=== PATIENT | female | born 1935 | race Caucasian/White ===

== ENCOUNTER → 2016-12-30 | Outpatient (CLI) | payer MEDICARE, BC ==
[~2016-12-30] MED LIST: ALBU8.5H6 IH; ALPR0.5T PO; ASCO500T2 PO; ASPI-630 PO; ATOR10TA PO; CALC1TAB75 PO; CEFD300C PO; FERR325C PO; GEMF600T3 PO; LEVO50TA PO; LEVO50TA5 PO; LISI-334 PO; METO50TA10 PO
--- NOTE | 2016-12-30 11:11 | RAD ---
Right shoulder, 3 views, 12/30/2016: History: Pain There is moderate bony demineralization. No fracture or dislocation is identified. There is minimal degenerative change at the AC joint and along the glenoid rim. Surgical clips are present in the right axilla. IMPRESSION: 1. Demineralization. 2. Minimal degenerative change. 3. No acute bony abnormality is detected.
--- NOTE | 2016-12-30 11:12 | RAD ---
Pelvis with left hip, 2 views, 12/30/2016: History: Hip pain The bony structures are demineralized. No fracture or dislocation is identified. The hip joint space is only mildly narrowed. There is mild marginal spurring at both hips. Mild degenerative change is present at the symphysis pubis. Moderate degenerative changes are noted in the lower lumbar spine. IMPRESSION: 1. Mild degenerative change at both hip joints. 2. No acute bony abnormality is detected.
== END | disposition home or self-care (01) ==
LOC: DXRADRC 10:51
PROVIDERS: ATTEND Physician Assistant Medical
DX: M16.12 Unilateral primary osteoarthritis, left hip (principal); M19.011 Primary osteoarthritis, right shoulder; M81.0 Age-related osteoporosis without current pathological fracture
CPT/HCPCS: 73030; 73501

== ENCOUNTER → 2020-03-13 | Outpatient (CLI) | payer MEDICARE, BC ==
[~2020-03-13] MED LIST changes: -ASCO500T2 PO; +ASCO500T4 PO; -GEMF600T3 PO; +GEMF600T8 PO; -METO50TA10 PO; +METO50TA29 PO
--- NOTE | 2020-03-13 09:54 | RAD ---
Left lower extremity venous Doppler ultrasound History: Reason: PAIN IN LEFT LOWER LEG; POPLITEAL PAIN : Comparison: None. Procedure: Color flow Doppler, Doppler spectral analysis, and 2D images are obtained with and without compression in the area of the common femoral vein, superficial femoral vein - femoral vein junction, main femoral vein (superficial femoral vein) and popliteal vein. Veins of the proximal calf are also imaged. Findings: There is normal color flow, augmentation, and compressibility of all visualized vein segments. No evidence of deep venous thrombus is present. There is a popliteal fossa cyst measuring 1.1 x 2.4 x 0.5 cm. IMPRESSION: No evidence of left lower extremity deep venous thrombosis. Electronically signed by: Allan Dalton MD (03/13/2020 9:51 AM) [id number]
== END ==
LOC: PMG 08:25
PROVIDERS: ATTEND Family Medicine
DX: M71.22 Synovial cyst of popliteal space [Baker], left knee (principal); M79.662 Pain in left lower leg; M79.609 Pain in unspecified limb
CPT/HCPCS: 93971

== ENCOUNTER → 2020-06-14 | Outpatient (CLI) | payer MEDICARE, BC ==
[~2020-06-14] MED LIST changes: +CALC-628 PO; -CALC1TAB75 PO
== END ==
LOC: LAB 09:46
PROVIDERS: ATTEND Internal Medicine Cardiovascular Disease
DX: E78.5 Hyperlipidemia, unspecified (principal)
CPT/HCPCS: 80061

== ENCOUNTER → 2020-09-07 | Outpatient (CLI) | payer MEDICARE, BC ==
--- NOTE | 2020-09-07 11:10 | CARD ---
MR#: [id number] Date of Study: 09/07/2020 Ordering Physician: MARCE ANNE, Referring Physician: MARCE ANNE, Tech: Malissa Johnson [facility] APPROVED REPORT EXAM: Two-dimensional and M-mode echocardiogram with Doppler and color Doppler. Other Information Quality : Good Rhythm : LBBB INDICATION Hypertension/HCVD 2D DIMENSIONS RVDd3.0 (2.9-3.5cm)Left Atrium(2D)3.3 (1.6-4.0cm) IVSd0.9 (0.7-1.1cm)Aortic Root(2D)2.9 (2.0-3.7cm) LVDd4.0 (3.9-5.9cm)LVOT Diameter2.0 (1.8-2.4cm) PWd0.9 (0.7-1.1cm)LVDs2.6 (2.5-4.0cm) FS (%) 35.8 %SV46.9 ml LVEF(%)60.0 (>50%) Aortic Valve AoV Peak Noe.123.2cm/sAoV VTI27.4cm AO Peak GR.6.1mmHgLVOT Peak Noe.89.3cm/s LVOT VTI 17.05cmAO Mean GR.4mmHg TY (VMAX)2.99hj6GMJ (VTI)1.96cm2 AI P 1/2 Bilw661zl Mitral Valve MV E Ydrojkcm93.3cm/sMV DECEL QVIO257zw MV A Rkzkzlqp214.5cm/sE/A Ratio0.7 Tricuspid Valve TR P. Gfaxpoip214gw/sRAP PNHWSFXB9aiHs TR Peak Gr.88boMxDBAQ74lqOa Pulmonary Vein S1 Ibwdiiiw55.7cm/sD2 Dpfisgcm88.3cm/s LEFT VENTRICLE The left ventricle is normal size. There is normal left ventricular wall thickness. The left ventricu lar systolic function is normal. The Ejection Fraction is 55-60%. Septal motion consistent with condu ction abnormality. Transmitral Doppler flow pattern is Grade I-abnormal relaxation pattern. RIGHT VENTRICLE The right ventricle is normal size. The right ventricular systolic function is normal. ATRIA The left atrium size is normal. The right atrium size is normal. The interatrial septum is intact wit h no evidence for an atrial septal defect or patent foramen ovale as noted on 2-D or Doppler imaging. AORTIC VALVE The aortic valve is mildly thickened but opens well. Doppler and Color Flow revealed mild aortic regu rgitation. There is no significant aortic valvular stenosis. MITRAL VALVE The mitral valve is calcified but opens well. There is no evidence of mitral valve prolapse. There is no mitral valve stenosis. Doppler and Color Flow revealed no mitral valve regurgitation noted. TRICUSPID VALVE The tricuspid valve is normal in structure and function. Doppler and Color Flow revealed trace tricus pid regurgitation. The PA pressure was estimated at 25 mmHg. There is no tricuspid valve stenosis. PULMONIC VALVE The pulmonic valve is not well visualized. Doppler and Color Flow revealed no pulmonic valvular regur gitation. There is no pulmonic valvular stenosis. GREAT VESSELS The aortic root is normal in size. The ascending aorta is normal in size. The IVC is normal in size a nd collapses >50% with inspiration. PERICARDIAL EFFUSION There is no evidence of significant pericardial effusion. Critical Notification Critical Value: No <Conclusion> The left ventricular systolic function is normal. The Ejection Fraction is 55-60%. Transmitral Doppler flow pattern is Grade I-abnormal relaxation pattern. Mild aortic regurgitation. Trace tricuspid regurgitation. The PA pressure was estimated at 25 mmHg. There is no evidence of significant pericardial effusion. Signed by : Estuardo Cintron, Electronically Approved : 09/07/2020 11:10:44
== END ==
LOC: ECHO 09:41
PROVIDERS: ATTEND Internal Medicine Cardiovascular Disease
DX: I08.0 Rheumatic disorders of both mitral and aortic valves (principal)
CPT/HCPCS: 93306

== ENCOUNTER → 2020-09-10 | Outpatient (CLI) | payer MEDICARE, BC ==
--- NOTE | 2020-09-10 17:28 | RAD ---
Chest PA and lateral: Reason for examination: Back\Thoracic spine pain. Comparison is made to previous chest exam dated 12/06/2014. The heart size is normal. Mediastinum is unremarkable. Lung foy show some linear density possibly reflecting atelectasis or scarring at the left lung base. No acute bony abnormalities are seen. There are surgical clips at the right axilla. Impression: Linear atelectasis or scarring at the left lung base. No other focal abnormality seen in the chest. Thoracic spine 3 views: There is a thoracic scoliosis. No acute fracture or subluxation is seen. No abnormalities of seen at the pedicles. The intervertebral discs show some narrowing at the mid thoracic spine and there greate st curvature consistent with some degenerative disc disease. IMPRESSION: Thoracic scoliosis with some degenerative disc disease at the mid thoracic spine. No acute abnormalit y evident in the thoracic spine. Electronically signed by: Radha Quiroz MD (09/10/2020 5:25 PM) CROW
== END ==
LOC: PMG 12:11
PROVIDERS: ATTEND Physician Assistant Medical
DX: M51.34 Other intervertebral disc degeneration, thoracic region (principal); M41.84 Other forms of scoliosis, thoracic region
CPT/HCPCS: 71046; 72072

== ENCOUNTER → 2020-11-28 | Outpatient (CLI) | payer MEDICARE, BC ==
[~2020-11-28] MED LIST changes: +GEMF-24 PO; -GEMF600T8 PO; -LISI-334 PO; +LISI20TA18 PO
--- NOTE | 2020-11-28 11:41 | RAD ---
INDICATION: Screening for osteopenia/osteoporosis. Postmenopausal evaluation. COMPARISON: None. TECHNIQUE: Bone densitometry was performed through the lumbar spine and proximal femur. IMPRESSION: Lumbar Spine: BMD: 1.04 T-Score: -1.2 Range: Osteopenic Proximal Femur: BMD: 0.7 T-Score: -2.1 Range: Osteopenic World Health Organization Criteria for Bone Density: T-Score: > -1.0: Normal Range < -1.0 to -2.5: Osteopenic Range < -2.5: Osteoporotic Range Electronically signed by: López Yu MD (11/28/2020 11:39 AM) [id number]
== END ==
LOC: DXRAD 10:18
PROVIDERS: ATTEND Internal Medicine Hematology & Oncology
DX: C50.111 Malignant neoplasm of central portion of right female breast (principal); Z90.11 Acquired absence of right breast and nipple; Z78.0 Asymptomatic menopausal state
CPT/HCPCS: 77080

== ENCOUNTER → 2020-11-28 | Outpatient (CLI) | payer MEDICARE, BC ==
--- NOTE | 2020-11-28 19:29 | RAD ---
EXAM: CT CHEST WITHOUT CONTRAST HISTORY: Invasive ductal carcinoma, recent right lumpectomy COMPARISON: None TECHNIQUE: Helical CT of the chest performed without contrast. Coronal and sagittal reformats were o btained. One or more of the following individualized dose reduction techniques were utilized for this examinat ion: 1. Automated exposure control 2. Adjustment of the mA and/or kV according to patient size 3. Use of iterative reconstruction technique. FINDINGS: Thyroid gland and thoracic inlet: Unremarkable. Heart and great vessels: Heart is normal in size. No pericardial effusion. Thoracic aorta is normal i n caliber Mediastinum and joanie: Small calcified mediastinal and hilar lymph nodes. No lymphadenopathy. Lungs and pleura: There is an 8 mm groundglass opacity in the right middle lobe (image 156, series 2) . There are scattered calcified granulomas. Mild subpleural reticulation in the lung bases. No pleura l effusion. Chest wall and axillae: Recent surgical changes of lumpectomy and right axillary node dissection. The re is a gas and fluid collection in the right breast measuring 7.0 x 3.4 x 5.6 cm. A fluid collection in the right axilla measures 5 x 3.7 x 4.2 cm. No axillary lymphadenopathy. Upper abdomen: Surgical changes of cholecystectomy. Calcified hepatic and splenic granulomas. Bones: No acute osseous abnormality. IMPRESSION: 1. Surgical changes of recent right lumpectomy and axillary node dissection. 7 cm gas and fluid maida ection in the right breast and 5 cm fluid collection in the right axilla may be postoperative seromas . Correlate clinically for infected fluid collection. 2. 8 mm groundglass nodule in the right middle lobe. Recommend follow-up CT in 6 months to ensure sta bility per Fleischner Society guidelines. 2017 Fleischner Society guidelines for management of incidental pulmonary nodules in adults over 35 y ears old. Radiology. Published online:?October 09, 2016 SUBSOLID NODULES Single < 6mm - No routine follow-up Single > 6mm - CT at 6-12 months to confirm persistence, the CT every 2 years until 5 years. Comment: In certain suspicious nodules <6mm, consider follow-up at 2 and 4 years. If solid components or growth develops, consider resection. *Clinical risk - These guidelines for nodule management are based on estimation of the individual ris k of malignancy. It is important to consider nodule size and morphology as well as smoking history, exposure to other carcinogens, emphysema, fibrosis, upper lobe location, family history of lung cance r, age, and sex is assessing clinical risk. For purposes of these guidelines it is recommended that risk be assigned according to the categories proposed by the [employer]. Low risk (less than 5%) - young age, less smoking, smaller nodule size, regular margins and location other than upper lobe. High risk (greater than 5%) - older age, heavy smoking, larger nodule size, irregular or spiculated m argins and upper lobe location. Electronically signed by: Melissa Medina MD (11/28/2020 7:27 PM) [id number]
== END ==
LOC: CT 10:16
PROVIDERS: ATTEND Radiology Radiation Oncology
DX: C50.111 Malignant neoplasm of central portion of right female breast (principal); R91.1 Solitary pulmonary nodule; R59.0 Localized enlarged lymph nodes; D73.89 Other diseases of spleen; K76.89 Other specified diseases of liver; Z98.890 Other specified postprocedural states; Z90.49 Acquired absence of other specified parts of digestive tract
CPT/HCPCS: 71250

== ENCOUNTER 2021-03-03 15:28 | Emergency (ER) | payer MEDICARE, BC ==
[~2021-03-03] VITALS: Ht 160 cm; Wt 63.0 kg
--- NOTE | 2021-03-03 15:53 | PHYS DOC ---
General Adult EDM: Chief Complaint: Palpitations HPI: HPI: 85-year-old female presents with palpitations and shortness of breath. She started feeling the palpitations today with occasional mild lightheadedness. She is felt like she had some mild shortness of breath for the last 2 or 3 days. She just recently finished radiation treatments for breast cancer. Her last treatment was about 3 weeks ago. Patient denies a cough or chest pain. She has been eating and drinking normally. She has a known left bundle branch block, but no other significant cardiac history. She had an echocardiogram in August or September. She denies fever or chills. Review of Systems: Review of Systems: Constitutional: Denies fever or chills Eyes: Denies change in visual acuity HENT: Denies nasal congestion or sore throat Respiratory: shortness of breath Cardiovascular: Palpitations GI: Denies abdominal pain, nausea, vomiting, bloody stools or diarrhea : Denies dysuria Musculoskeletal: Denies back pain or joint pain Integument: Denies rash Neurologic: Denies headache, focal weakness or sensory changes Endocrine: Denies polyuria or polydipsia Lymphatic: Denies swollen glands Psychiatric: Denies depression or anxiety Allergies: Allergies: Allergies Coded Allergies Type Severity Reaction Last Updated Verified codeine Allergy Unknown 12/11/14 Yes Physical Exam: PE: Constitutional: Well developed, well nourished, no acute distress, non-toxic appearance. [] HENT: Normocephalic, atraumatic, bilateral external ears normal, oropharynx moist, no oral exudates, nose normal. [] Eyes: PERRLA, EOMI, conjunctiva normal, no discharge. [] Neck: Normal range of motion, no tenderness, supple, no stridor. [] Cardiovascular: Heart rate 96, regular rhythm, no murmur [] Lungs & Thorax: Bilateral breath sounds clear to auscultation [] Abdomen: Bowel sounds normal, soft, no tenderness, no masses, no pulsatile masses. [] Skin: Warm, dry, no erythema, no rash. [] Back: No tenderness, no CVA tenderness. [] Extremities: No tenderness, no cyanosis, no clubbing, ROM intact, no edema. [] Neurologic: Alert and oriented X 3, normal motor function, normal sensory function, no focal deficits noted. [] Psychologic: Affect normal, judgement normal, mood normal. [] EKG: EKG: Sinus rhythm, rate 96, and leftward axis, no ST elevations or depression. PVCs, left bundle branch block, prolonged QTC. [] Radiology/Procedures: Radiology/Procedures: [] Impressions: EXAM: XR CHEST 1V 03/03/2021 3:54 PM CLINICAL INDICATION: Palpitations COMPARISON: Chest radiograph 09/10/2020 TECHNIQUE: AP upright view the chest FINDINGS: Heart is normal in size. Lungs are adequately expanded. Mild interstitial prominence in the bases. Nipple shadows are noted. No consolidation, pleural effusion, or pneumothorax. No acute osseous abnormality. IMPRESSION: No acute cardiopulmonary abnormality. Electronically signed by: Melissa Medina MD (03/03/2021 4:20 PM) [id number] DICTATED AND SIGNED BY: MELISSA MEDINA MD DATE: 03/03/21 161 CC: HECTOR SCHNEIDER DO; BALDEMAR MCNEILL PA ~MTH0 0 Heart Score: C/O Chest Pain: No Risk Factors: Risk Factors: DM, Current or recent (<one month) smoker, HTN, HLP, family history of CAD, obesity. Risk Scores: Score 0 - 3: 2.5% MACE over next 6 weeks - Discharge Home Score 4 - 6: 20.3% MACE over next 6 weeks - Admit for Clinical Observation Score 7 - 10: 72.7% MACE over next 6 weeks - Early Invasive Strategies Course & Med Decision Making: Course & Med Decision Making Pertinent Labs and Imaging studies reviewed. (See chart for details) The patient's labs are unremarkable. Her EKG shows PVCs and a prolonged QT, but no other significant findings. Her urinalysis is negative for infection. Her troponin is negative. Chest x-ray is negative for acute findings. Repeat EKG similar to the previous. I discussed the results with the patient. She is feeling better at this time. She is having less PVCs. I told her that she should let her primary physician and can see know about her visit to the ER and discuss the possibility of cardiology follow-up. She states verbal understanding. She is stable for discharge at this time. [] Dragon Disclaimer: Dragon Disclaimer: This electronic medical record was generated, in whole or in part, using a voice recognition dictation system. Departure Departure: Impression: Primary Impression: Palpitations Disposition: HOME / SELF CARE / HOMELESS Condition: STABLE Referrals: BALDEMAR MCNEILL (PCP) Patient Instructions: Palpitations, [id number]-[id number] HECTOR SCHNEIDER DO Mar 03, 2021 15:53
--- NOTE | 2021-03-03 15:58 | EKG ---
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
[2021-03-03 16:00] LABS: BASO # 0.1 x10^3/uL (0.0-0.2); BASO % 1 % (0-3); EOS # 0.4 x10^3/uL (0.0-0.7); EOS % 5 % (0-3); HEMATOCRIT 37.2 % (36.0-47.0); HEMOGLOBIN 12.6 g/dL (12.0-15.5); LYMPH # 1.7 x10^3/uL (1.0-4.8); LYMPH % 21 % (24-48); MEAN CORPUSCULAR HEMOGLOBIN 30 pg (25-35); MEAN CORPUSCULAR HGB CONC 34 g/dL (31-37); MEAN CORPUSCULAR VOLUME 89 fL (79-100); MONO # 0.8 x10^3/uL (0.0-1.1); MONO % 10 % (0-9); NEUT # 5.1 x10^3uL (1.8-7.7); NEUT % 64 % (31-73); PLATELET COUNT 211 x10^3/uL (140-400); RED CELL DISTRIBUTION WIDTH 14.3 % (11.5-14.5); WHITE BLOOD COUNT 8.1 x10^3/uL (4.0-11.0)
[2021-03-03 16:07] LABS: CALCIUM 8.9 mg/dL (8.5-10.1); CREATININE 1.1 mg/dL (0.6-1.0); POTASSIUM 4.1 mmol/L (3.5-5.1)
[2021-03-03 16:13] LABS: ALBUMIN 3.9 g/dL (3.4-5.0); ALBUMIN/GLOBULIN RATIO 1.3 (1.0-1.7); TOTAL BILIRUBIN 0.3 mg/dL (0.2-1.0); TOTAL PROTEIN 6.8 g/dL (6.4-8.2)
--- NOTE | 2021-03-03 16:22 | RAD ---
EXAM: XR CHEST 1V 03/03/2021 3:54 PM CLINICAL INDICATION: Palpitations COMPARISON: Chest radiograph 09/10/2020 TECHNIQUE: AP upright view the chest FINDINGS: Heart is normal in size. Lungs are adequately expanded. Mild interstitial prominence in th e bases. Nipple shadows are noted. No consolidation, pleural effusion, or pneumothorax. No acute osse ous abnormality. IMPRESSION: No acute cardiopulmonary abnormality. Electronically signed by: Melissa Medina MD (03/03/2021 4:20 PM) [id number]
[2021-03-03 17:35] VITALS: BP 135/69
[2021-03-03 17:42] LABS: BACTERIA,URINE 0 /HPF (0-FEW); BILIRUBIN,URINE NEG (NEG); CLARITY,URINE CLEAR; COLOR,URINE YELLOW; GLUCOSE,URINE NEG (NEG); NITRITE,URINE NEG (NEG); SQUAMOUS EPITHELIAL CELL,UR FEW /LPF; UROBILINOGEN,URINE 0.2 mg/dL (0.2 mg/dL); WBC,URINE 0 /HPF (0-4)
--- NOTE | 2021-03-03 18:02 | EKG ---
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
== END 2021-03-03 18:18 | disposition home or self-care (01) ==
LOC: ER 15:28
DX: R00.2 Palpitations (principal); R06.02 Shortness of breath; R42 Dizziness and giddiness; Z88.5 Allergy status to narcotic agent
CPT/HCPCS: 36415; 71045; 80053; 81001; 84484; 85025; 93005; 99285

== ENCOUNTER → 2021-04-11 | Outpatient (CLI) | payer MEDICARE, BC ==
[2021-04-11] MEDS: REGADENOSON 0.4 MG/5 ML DISP.SYRIN. IV ONE (08:00)
--- NOTE | 2021-04-11 16:57 | RAD ---
MR#: [id number] Date of Study: 04/11/2021 Ordering Physician: MARCE ANNE, Referring Physician: KIMI VERA Tech: RT Tristian (R) (N) APPROVED REPORT Test Type: Pharmacological Stress Nurse/Tech: RT Tristian (R) (N)/ [place] Test Indications: Dyspnea Cardiac History: LBBB, Stent Medications: See EHR Resting Heart Rate: 59 bpm Resting Blood Pressure: 166/55mmHg Pretest Chest Pain: None Pharm. Details Pharmacologic stress testing was performed using 0.4mg per 5ml of regadenoson given intravenously ove r 7-10 seconds. POST EXERCISE Reason for Termination: Infusion complete Max HR: 123 bpm Max Blood Pressure: 144/48mmHg Blood Pressure response to exercise: Normal blood pressure response during stress. Chest Pain: No. Arrhythmia: No. ST Change: No. INTERPRETATION Stress EKG Conclusion: Nondiagnostic EKG due to of left bundle branch block. Imaging Protocol IMAGE PROTOCOL: Rest Tc-99m/stress Tc-99m 1 day Rest: Stress: Viability: Radiopharm.Tc99m ZnkvndwwfNk82q Sestamibi Vsgm01xUq 33mCi Duration 15min. 15min. Img Date 04/11/2021 04/11/2021 Inj-Img Ckhk61xle. 60min. Rest Admin Site:IV - Right AntecubitalAdministrator: RT Tristian (R)(N) Stress Admin Site: IV - Right AntecubitalAdministrator: RT Tristian (R)(N) STRESS DATA End Diast. Vol.63.0mlAv. Heart Rate70.0bpm End Syst. Vol.7.0mlCO Index BSA0.0L/min Myocardial Waxd366.0gEject. Swypfkbo56.0% Stress Rates Pk. Fill Rate2.66EDV/secLVtime Pk. Fill 125.75msec Pk. Empty Rate4.28ESV/secLVtime Pk. Vefgq364.40msec 08/19 Pk. Fill1.74EDV/sec Stress Scores Regional WT0.00Summed WT4.00 Regional WM0.00Summed WM0.00 The rest and stress images show normal perfusion, normal contraction and thickening. LV Perf. Quant 17 Seg. SSS5.00 17 Seg. SRS6.00 17 Seg. SDS2.00 Stress Defect Extent (% LAD)11.90Rest Defect Extent (% LAD)16.30Rev. Defect Extent (% LAD)0.00 Stress Defect Extent (% LCX) 17.50Rest Defect Extent (% LCX)17.50Rev. Defect Extent (% LCX)0.00 Stress Defect Extent (% RCA)3.30Rest Defect Extent (% RCA)12.20Rev. Defect Extent (% RCA)0.00 Stress Defect Extent (% SADE)12.40Rest Defect Extent (% SADE)17.20Rev. Defect Extent (% SADE)0.00 Other Information Quality:Average Risk Assessment: Low Risk Conclusion 1. Nondiagnostic EKG due to left S block 2. Normal perfusion and stress at rest 3. Normal EF greater than 70% 4. Motion artifact noted. 5. Low risk study overall. Signed by : Marce Anne, Electronically Approved : 04/11/2021 16:57:15
== END ==
LOC: NM 07:37
PROVIDERS: ATTEND Internal Medicine Cardiovascular Disease
DX: R06.00 Dyspnea, unspecified (principal)
CPT/HCPCS: 78452; 93017; A9500; J2785

== ENCOUNTER → 2021-05-08 | Outpatient (CLI) | payer MEDICARE, BC ==
--- NOTE | 2021-05-08 10:25 | RAD ---
Noncontrast CT scan of the chest compared to similar exam dated November 282020 for invasive ductal breast cancer, history of radiation therapy. TECHNIQUE: Contiguous axial CT images are obtained through the chest. Sagittal and coronal reformatio ns are evaluated. FINDINGS: Postsurgical changes of right lumpectomy and axillary lymph node dissection. Previously see n fluid collections in the right breast have resolved. No suspicious mediastinal, hilar, or axillary lymphadenopathy. Numerous calcified lymph nodes throughout the mediastinum are consistent with antece dent granulomatous disease. Heart size within normal limits. There antecedent granulomatous changes i n the liver and spleen. There is been a prior cholecystectomy. Remaining nonenhanced visualized upper abdominal organs are grossly unremarkable.Central airways are patent. There is a new dense linear op acity throughout the right upper lobe near the apex, consistent with radiation related change. There is stable nonspecific wedge-shaped groundglass opacity along the anterior aspect the major fissure in the right upper lobe. 8 millimeter groundglass nodule in the right middle lobe is stable. There are a few tiny tree-in-bud nodules throughout this lobe as well, more conspicuous. There is a calcified g ranuloma in the right lung base. 4 mm pleural-based stable nodule in the left lung base. Stable calci fied granuloma in the left upper lung. Stable calcified granuloma in the right lobe. No new lung nodu les or masses. IMPRESSION: 1. New linear consolidation the right upper lobe likely due to radiation therapy. 2. Stable 8 mm groundglass opacity in the right middle lobe. Although stable, this remains nonspecifi c and continued annual follow-up is recommended. 3. Patchy tree-in-bud nodularity throughout the periphery of the right middle lobe, more conspicuous than on the prior exam, and possibly representing superimposed acute subsegmental bronchiolitis on ch ronic interstitial change. 4. Stable wedge-shaped groundglass opacity in the right upper lobe, nonspecific but almost certainly benign. 5. Changes of antecedent granulomatous disease. PQRS Compliance Statement: One or more of the following individualized dose reduction techniques were utilized for this examinat ion: 1. Automated exposure control 2. Adjustment of the mA and/or kV according to patient size 3. Use of iterative reconstruction technique Electronically signed by: Pritesh Mason MD (05/08/2021 10:23 AM) [email or web address]
== END ==
LOC: CT 09:37
PROVIDERS: ATTEND Radiology Radiation Oncology
DX: R91.8 Other nonspecific abnormal finding of lung field (principal); J18.1 Lobar pneumonia, unspecified organism; D71 Functional disorders of polymorphonuclear neutrophils; K75.3 Granulomatous hepatitis, not elsewhere classified; J84.10 Pulmonary fibrosis, unspecified; D05.10 Intraductal carcinoma in situ of unspecified breast; Z90.49 Acquired absence of other specified parts of digestive tract
CPT/HCPCS: 71250

== ENCOUNTER → 2021-07-25 | Outpatient (CLI) | payer MEDICARE, BC ==
--- NOTE | 2021-07-25 16:20 | RAD ---
EXAMINATION: MG DIGITAL BILAT DIAGNOSTIC MAMMO WITH HARVINDER History: Recent right breast post lumpectomy. This is the patient's initial six-month follow-up. Comparison: 08/29/2020 and other prior exams Technique: Bilateral digital diagnostic mammogram views were obtained. CAD was utilized. 3-D tomosyn thesis images were acquired. Findings: Breast Tissue Density B : There are scattered areas of fibroglandular density. There are new surgical changes of lumpectomy at 12:00 in the right breast posterior depth. There is e xpected focal asymmetry and architectural distortion as well as overlying skin retraction in the lump ectomy region. There is no suspicious mass, suspicious architectural distortion, or suspicious calcif ications in either breast. There are surgical clips in the right axilla. IMPRESSION: Expected treatment-related changes in the right breast. No evidence of malignancy. Recommend short in terval 6 month follow-up mammogram of the right breast to ensure stability. BI-RADS category 2: Benign. The images were reviewed with computer aided detection. Patient information is entered into the reminder system with a target due date for the next screening mammogram. Mammography is the most sensitive method for finding small breast cancers, but it does not detect the m all and is not a substitute for careful clinical examination. A negative mammogram does not negate a clinically suspicious finding and should not result in delay in biopsying a clinically suspicious a bnormality. "Our facility is accredited by the [employer] Mammography Program." Electronically signed by: Melissa Medina MD (07/25/2021 4:17 PM) [id number]
== END ==
LOC: MAMMO 14:46
PROVIDERS: ATTEND Internal Medicine Hematology & Oncology
DX: R92.8 Other abnormal and inconclusive findings on diagnostic imaging of breast (principal); Z90.11 Acquired absence of right breast and nipple
CPT/HCPCS: 77066; G0279; 77062

== ENCOUNTER → 2021-12-30 | Outpatient (CLI) | payer MEDICARE, BC ==
[2021-12-30 11:15] LABS: CALCIUM 9.7 mg/dL (8.5-10.1); CREATININE 1.1 mg/dL (0.6-1.0); GFR 46.9; POTASSIUM 4.3 mmol/L (3.5-5.1)
== END ==
LOC: LAB 09:44
PROVIDERS: ATTEND Nurse Practitioner
DX: I10 Essential (primary) hypertension (principal)
CPT/HCPCS: 36415; 80048